=== PATIENT | male | born 1965 | race African-American/Black ===

== ENCOUNTER 2018-02-24 22:29 | Emergency (ER) | payer OTHER ==
[~2018-02-24] VITALS: Ht 170.2 cm; Wt 102.5 kg
[2018-02-24 22:39] VITALS: Ht 170.2 cm; Wt 102.5 kg
[2018-02-24 23:22] VITALS: BP 150/88
== END 2018-02-24 23:22 | disposition home or self-care (01) ==
LOC: ED 22:29
DX: F41.9 Anxiety disorder, unspecified (principal); Z88.5 Allergy status to narcotic agent; Z88.1 Allergy status to other antibiotic agents
CPT/HCPCS: 82962

== ENCOUNTER 2018-04-22 19:47 | Emergency (ER) | payer OTHER ==
[~2018-04-22] VITALS: Ht 167.6 cm; Wt 101.2 kg
[2018-04-22 20:02] VITALS: Ht 167.6 cm; Wt 101.2 kg
[2018-04-22 20:54] VITALS: BP 144/89
== END 2018-04-22 20:50 | disposition home or self-care (01) ==
LOC: ED 19:47
DX: A60.01 Herpesviral infection of penis (principal); F17.210 Nicotine dependence, cigarettes, uncomplicated; Z88.1 Allergy status to other antibiotic agents; Z88.5 Allergy status to narcotic agent; Z98.890 Other specified postprocedural states

== ENCOUNTER 2018-05-01 18:58 | Emergency (ER) | payer OTHER ==
[~2018-05-01] VITALS: Ht 167.6 cm; Wt 100.2 kg
[2018-05-01 19:07] VITALS: Ht 167.6 cm; Wt 100.2 kg
[2018-05-01 20:24] VITALS: BP 130/84
== END 2018-05-01 20:24 | disposition home or self-care (01) ==
LOC: ED 18:58
DX: M54.42 Lumbago with sciatica, left side (principal); F17.210 Nicotine dependence, cigarettes, uncomplicated; Z88.1 Allergy status to other antibiotic agents; Z88.5 Allergy status to narcotic agent
CPT/HCPCS: 99406

== ENCOUNTER 2018-05-28 14:41 | Emergency (ER) | payer OTHER ==
[~2018-05-28] VITALS: Ht 172.7 cm; Wt 95.7 kg
[2018-05-28 15:09] VITALS: Ht 172.7 cm; Wt 95.7 kg
[2018-05-28 17:51] VITALS: BP 146/94
== END 2018-05-28 17:51 | disposition home or self-care (01) ==
LOC: ED 14:41
DX: R35.8 Other polyuria (principal); R35.0 Frequency of micturition; Z00.00 Encounter for general adult medical examination without abnormal findings; Z88.5 Allergy status to narcotic agent; Z88.1 Allergy status to other antibiotic agents; Z98.890 Other specified postprocedural states
CPT/HCPCS: 82962; 87491; 87591

== ENCOUNTER 2018-07-21 19:37 | Emergency (ER) | payer OTHER ==
[~2018-07-21] VITALS: Ht 167.6 cm; Wt 89.8 kg
[2018-07-21 19:43] VITALS: Ht 167.6 cm; Wt 89.8 kg
[2018-07-21 20:54] VITALS: BP 114/60
== END 2018-07-21 20:54 | disposition home or self-care (01) ==
LOC: ED 19:37
DX: A60.01 Herpesviral infection of penis (principal); Z88.5 Allergy status to narcotic agent; Z98.890 Other specified postprocedural states

== ENCOUNTER 2018-08-31 19:30 | Emergency (ER) | payer OTHER ==
[~2018-08-31] VITALS: Ht 167.6 cm; Wt 89.8 kg
[2018-08-31 19:36] VITALS: Ht 167.6 cm; Wt 89.8 kg
[2018-08-31 21:05] VITALS: BP 122/93
== END 2018-08-31 21:05 | disposition home or self-care (01) ==
LOC: ED 19:30
DX: N39.0 Urinary tract infection, site not specified (principal); Z88.5 Allergy status to narcotic agent
CPT/HCPCS: 87491; 87591

== ENCOUNTER 2018-09-04 19:59 | Emergency (ER) | payer OTHER ==
[~2018-09-04] VITALS: Ht 167.6 cm; Wt 90.7 kg
[2018-09-04 20:18] VITALS: BP 134/87; Ht 167.6 cm; Wt 90.7 kg
== END 2018-09-04 21:56 | disposition home or self-care (01) ==
LOC: ED 19:59
DX: A54.9 Gonococcal infection, unspecified (principal); Z88.1 Allergy status to other antibiotic agents; Z88.5 Allergy status to narcotic agent
CPT/HCPCS: J0696

== ENCOUNTER 2018-09-08 02:55 | Emergency (ER) | payer OTHER ==
[~2018-09-08] VITALS: Ht 167.6 cm; Wt 90.7 kg
[2018-09-08 03:01] VITALS: Ht 167.6 cm; Wt 90.7 kg
[2018-09-08 03:58] VITALS: BP 127/72
== END 2018-09-08 03:58 | disposition home or self-care (01) ==
LOC: ED 02:55
DX: S50.862A Insect bite (nonvenomous) of left forearm, initial encounter (principal); S50.861A Insect bite (nonvenomous) of right forearm, initial encounter; S10.96XA Insect bite of unspecified part of neck, initial encounter; Z88.5 Allergy status to narcotic agent; Z98.890 Other specified postprocedural states; Z88.1 Allergy status to other antibiotic agents; W57.XXXA Bitten or stung by nonvenomous insect and other nonvenomous arthropods, initial encounter; Y93.89 Activity, other specified; Y92.89 Other specified places as the place of occurrence of the external cause; Y99.8 Other external cause status

== ENCOUNTER 2018-09-18 06:58 | Emergency (ER) | payer OTHER ==
[~2018-09-18] VITALS: Ht 167.6 cm; Wt 89.8 kg
[2018-09-18 07:03] VITALS: Ht 167.6 cm; Wt 89.8 kg
[2018-09-18 08:07] LABS: microscopic required? YES; urine erythrocyte NEGATIVE (NEGATIVE)
[2018-09-18 09:04] VITALS: BP 110/75
[2018-09-19 04:06] LABS: RAPID PLASMA REAGIN Non Reactive (Non Reactive)
== END 2018-09-18 09:04 | disposition home or self-care (01) ==
LOC: ED 06:58
PROVIDERS: Emergency Medicine
DX: N34.2 Other urethritis (principal); Z88.1 Allergy status to other antibiotic agents; Z88.5 Allergy status to narcotic agent
CPT/HCPCS: 87491; 87591; J0696

== ENCOUNTER 2018-09-22 19:29 | Emergency (ER) | payer OTHER ==
[~2018-09-22] VITALS: Ht 167.6 cm; Wt 91.2 kg
[2018-09-22 19:33] VITALS: Ht 167.6 cm; Wt 91.2 kg
[2018-09-22 20:23] VITALS: BP 121/72
== END 2018-09-22 20:23 | disposition home or self-care (01) ==
LOC: ED 19:29
DX: B00.9 Herpesviral infection, unspecified (principal); Z76.0 Encounter for issue of repeat prescription; Z88.1 Allergy status to other antibiotic agents; Z88.5 Allergy status to narcotic agent